=== PATIENT | female | born 1965 | race Two or more races ===

== ENCOUNTER 2020-08-20 05:02 | Inpatient (IN) | payer MEDICAID, OTHER ==
[~2020-08-20] VITALS: Ht 152.4 cm; Wt 72.6 kg
[2020-08-20] MEDS ORDERED: MAGNESIUM/ALUMINUM HYDROXIDE/SIMETHICONE 30ML UDC PO STA (06:33)
[2020-08-20] MEDS ORDERED: KETOROLAC 30MG/ML VIAL IV STA (06:33)
[2020-08-20] MEDS ORDERED: SODIUM CHLORIDE 0.9% 1,000 ML IV ONE (06:45)
[2020-08-20 08:27] LABS: BASOPHILS % 0.3 % (0.0-2.0); EOSINOPHILS % 0.3 % (0.0-5.0); HEMATOCRIT. 42.9 % (36.0-48.0); HEMOGLOBIN. 14.6 g/dL (12.0-16.0); LYMPHOCYTES % 9.2 % (20.0-50.0); MEAN CORPUSCULAR VOLUME 85.4 fL (81.0-99.0); MEAN PLATELET VOLUME 10.2 fl (7.4-10.4); MONOCYTES % 5.5 % (2.0-8.0); NEUTROPHILS % 84.7 % (40.0-76.0); PLATELET 216 x1000/uL (130-400); RED BLOOD CELL COUNT 5.02 mill/uL (4.2-5.4); RED CELL DISTRIBUTION WIDTH 13.7 % (11.6-14.6)
[2020-08-20 08:30] LABS: CLARITY URINE CLEAR (CLEAR); COLOR URINE YELLOW (YELLOW); KETONES URINE 1+ (NEGATIVE); LEUKOCYTE ESTERASE URINE NEGATIVE (NEGATIVE); NITRITE URINE NEGATIVE (NEGATIVE); OCCULT BLOOD URINE NEGATIVE (NEGATIVE); PH URINE 6.5 (4.5-8.0); PROTEIN URINE NEGATIVE (NEGATIVE); SPECIFIC GRAVITY URINE 1.027 (1.005-1.030)
[2020-08-20 08:32] LABS: CHLORIDE 105 mEq/L (98-107)
[2020-08-20 08:35] LABS: INR 1.1; PROTHROMBIN TIME 11.3 sec (9.6-11.0)
[2020-08-20 08:36] LABS: ETHANOL BLOOD < 10 mg/dL
[2020-08-20 08:51] LABS: *AMPHETAMINES SCREEN URINE NEGATIVE (NEGATIVE); *BARBITURATES SCREEN URINE NEGATIVE (NEGATIVE); *BENZODIAZEPINES SCREEN URINE NEGATIVE (NEGATIVE); *COCAINE SCREEN URINE NEGATIVE (NEGATIVE); METHADONE URINE SCREEN NEGATIVE (NEGATIVE); OPIATES URINE SCREEN NEGATIVE (NEGATIVE); PHENCYCLIDINE URINE SCREEN NEGATIVE (NEGATIVE)
[2020-08-20 08:52] LABS: CANNABINOID URINE SCREEN NEGATIVE (NEGATIVE)
[2020-08-20 12:50] VITALS: BP 169/107
[2020-08-20 13:25] VITALS: BP 169/107
[2020-08-20] MEDS ORDERED: ONDANSETRON HCL 4MG/2ML INJ IV PRN ×2 (13:45→14:15)
[2020-08-20] MEDS ORDERED: MORPHINE SULFATE 2 MG/ML CPJ (NOT FOR IM USE) IV PRN (13:45)
[2020-08-20] MEDS ORDERED: GUAIFENESIN 200MG/10ML SUGAR FREE UDC PO PRN (14:15)
[2020-08-20] MEDS ORDERED: DIPHENHYDRAMINE 50MG/ML VIAL IV PRN (14:15)
[2020-08-20] MEDS ORDERED: DEXTROSE 50% WATER 50ML SYRINGE IV PRN (14:15)
[2020-08-20] MEDS: KETOROLAC 30MG/ML VIAL IV PRN (15:56)
[2020-08-20] MEDS: ENOXAPARIN 40MG/0.4ML SYR SUBCUT SCH (15:58)
[2020-08-20] MEDS: AMLODIPINE 10MG TABLET PO SCH (15:58)
[2020-08-20 16:00] VITALS: BP 157/96
[2020-08-20] MEDS: BLOOD SUGAR DIAGNOSTIC STRIP TEST SCH ×2 (17:23→20:59)
[2020-08-20] MEDS: INSULIN LISPRO 100 UNITS/ML SUBCUT SCH ×2 (17:39→20:58)
[2020-08-20] MEDS: SODIUM CHLORIDE 0.9% 1,000 ML IV SCH ×2 (17:40→23:38)
[2020-08-20 20:00] VITALS: BP 146/95
[2020-08-20] MEDS ORDERED: HYDROMORPHONE HCL/PF 2MG/ML CPJ IV PRN (22:15)
[2020-08-21] VITALS: BP 126/76
[2020-08-21 04:00] VITALS: BP 136/91
[2020-08-21] MEDS: KETOROLAC 30MG/ML VIAL IV PRN (05:59)
[2020-08-21] MEDS: BLOOD SUGAR DIAGNOSTIC STRIP TEST SCH ×4 (07:06→21:20)
[2020-08-21 07:23] LABS: CHLORIDE 105 mEq/L (98-107)
[2020-08-21 07:30] LABS: LDL CHOLESTEROL 51 mg/dL (5-100)
[2020-08-21 07:31] LABS: HDL CHOLESTEROL 54 mg/dL (40-59)
[2020-08-21 07:42] LABS: BASOPHILS % 0.7 % (0.0-2.0); EOSINOPHILS % 0.9 % (0.0-5.0); HEMATOCRIT. 37.3 % (36.0-48.0); HEMOGLOBIN. 12.7 g/dL (12.0-16.0); LYMPHOCYTES % 25.1 % (20.0-50.0); MEAN CORPUSCULAR HEMOGLOBIN 29.2 pg (28.0-32.0); MEAN CORPUSCULAR VOLUME 85.5 fL (81.0-99.0); MEAN PLATELET VOLUME 11.3 fl (7.4-10.4); NEUTROPHILS % 63.3 % (40.0-76.0); PLATELET 187 x1000/uL (130-400); RED BLOOD CELL COUNT 4.36 mill/uL (4.2-5.4); RED CELL DISTRIBUTION WIDTH 13.9 % (11.6-14.6)
[2020-08-21] MEDS: INSULIN LISPRO 100 UNITS/ML SUBCUT SCH ×4 (07:50→21:19)
[2020-08-21 08:00] VITALS: BP 131/88
[2020-08-21] MEDS: AMLODIPINE 10MG TABLET PO SCH (09:56)
[2020-08-21] MEDS: SODIUM CHLORIDE 0.9% 1,000 ML IV SCH ×2 (09:57→20:43)
[2020-08-21 12:00] VITALS: BP 134/88
[2020-08-21] MEDS: ENOXAPARIN 40MG/0.4ML SYR SUBCUT SCH (13:19)
[2020-08-21 16:00] VITALS: BP 134/85
[2020-08-21 20:00] VITALS: BP 136/86
[2020-08-22] VITALS: BP 134/83
[2020-08-22] MEDS: KETOROLAC 30MG/ML VIAL IV PRN
[2020-08-22 04:00] VITALS: BP 129/89
[2020-08-22 05:39] LABS: EOSINOPHILS % 4.3 % (0.0-5.0); HEMATOCRIT. 39.6 % (36.0-48.0); HEMOGLOBIN. 13.4 g/dL (12.0-16.0); LYMPHOCYTES % 43.8 % (20.0-50.0); MEAN CORPUSCULAR HEMOGLOBIN 28.8 pg (28.0-32.0); MEAN CORPUSCULAR VOLUME 85.3 fL (81.0-99.0); MONOCYTES % 11.3 % (2.0-8.0); NEUTROPHILS % 39.6 % (40.0-76.0); PLATELET 191 x1000/uL (130-400); RED BLOOD CELL COUNT 4.64 mill/uL (4.2-5.4); RED CELL DISTRIBUTION WIDTH 13.8 % (11.6-14.6)
[2020-08-22 05:50] LABS: CHLORIDE 107 mEq/L (98-107)
[2020-08-22] MEDS: SODIUM CHLORIDE 0.9% 1,000 ML IV SCH (06:17)
[2020-08-22] MEDS: BLOOD SUGAR DIAGNOSTIC STRIP TEST SCH ×2 (07:11→11:56)
[2020-08-22 08:00] VITALS: BP 156/93
[2020-08-22] MEDS: AMLODIPINE 10MG TABLET PO SCH (09:09)
[2020-08-22] MEDS: INSULIN LISPRO 100 UNITS/ML SUBCUT SCH ×2 (09:12→12:04)
[2020-08-22] MEDS ORDERED: POTASSIUM CHLORIDE 20MEQ TABLET SR PO SCH (10:15)
[2020-08-22 13:23] VITALS: BP 146/81
[2020-08-22] MEDS: ENOXAPARIN 40MG/0.4ML SYR SUBCUT SCH (13:51)
== END 2020-08-22 14:30 | disposition home or self-care (01) | DRG 282 ==
LOC: ER 05:02 → 6EST 10:12 → ENRESERV 11:57
PROVIDERS: ADMIT Family Medicine; ATTEND Family Medicine
DX: K85.10 Biliary acute pancreatitis without necrosis or infection (principal); E11.65 Type 2 diabetes mellitus with hyperglycemia; I10 Essential (primary) hypertension; E66.9 Obesity, unspecified; J98.11 Atelectasis; R74.01 Elevation of levels of liver transaminase levels; E87.6 Hypokalemia; E88.09 Other disorders of plasma-protein metabolism, not elsewhere classified; K80.70 Calculus of gallbladder and bile duct without cholecystitis without obstruction; Z88.9 Allergy status to unspecified drugs, medicaments and biological substances; Z95.0 Presence of cardiac pacemaker; Z68.31 Body mass index [BMI] 31.0-31.9, adult; R65.10 Systemic inflammatory response syndrome (SIRS) of non-infectious origin without acute organ dysfunction
CPT/HCPCS: 36415; 71045; 74176; 76700; 80048; 80053; 80061; 80076; 80305; 80320; 81003; 82962; 83036; 85025; 93005; 99285; J1170; J1200; J1650; J1815; J1885; J7030; G0480

== ENCOUNTER 2020-08-28 10:48 | Inpatient (IN) | payer MEDICAID, OTHER ==
[~2020-08-28] VITALS: Ht 160 cm; Wt 70.3 kg
[2020-08-28] MEDS ORDERED: ONDANSETRON HCL 4MG/2ML INJ IV STA (11:06)
[2020-08-28] MEDS ORDERED: KETOROLAC 15MG/ML VIAL IV ONE ×2 (11:15→12:30)
[2020-08-28] MEDS ORDERED: SODIUM CHLORIDE 0.9% 1,000 ML IV ONE (11:15)
[2020-08-28 11:33] LABS: EOSINOPHILS % 0.7 % (0.0-5.0); HEMATOCRIT. 43.6 % (36.0-48.0); HEMOGLOBIN. 14.6 g/dL (12.0-16.0); LYMPHOCYTES % 27.9 % (20.0-50.0); MEAN CORPUSCULAR HEMOGLOBIN 28.6 pg (28.0-32.0); MEAN CORPUSCULAR VOLUME 85.5 fL (81.0-99.0); MEAN PLATELET VOLUME 10.2 fl (7.4-10.4); MONOCYTES % 6.6 % (2.0-8.0); NEUTROPHILS % 63.8 % (40.0-76.0); PLATELET 289 x1000/uL (130-400); RED CELL DISTRIBUTION WIDTH 13.8 % (11.6-14.6)
[2020-08-28 11:43] LABS: CHLORIDE 99 mEq/L (98-107)
[2020-08-28 13:26] LABS: PARTIAL THROMBOPLASTIN TIME 25.6 sec (23.4-31.0); PROTHROMBIN TIME 10.9 sec (9.6-11.0)
[2020-08-28 13:33] LABS: CLARITY URINE CLEAR (CLEAR); COLOR URINE YELLOW (YELLOW); KETONES URINE 1+ (NEGATIVE); LEUKOCYTE ESTERASE URINE NEGATIVE (NEGATIVE); NITRITE URINE NEGATIVE (NEGATIVE); OCCULT BLOOD URINE NEGATIVE (NEGATIVE); PROTEIN URINE NEGATIVE (NEGATIVE); SPECIFIC GRAVITY URINE 1.038 (1.005-1.030); UROBILINOGEN URINE 0.2 E.U./dL (0.2-1.0)
[2020-08-28] MEDS ORDERED: MAGNESIUM/ALUMINUM HYDROXIDE/SIMETHICONE 30ML UDC PO PRN (14:15)
[2020-08-28] MEDS ORDERED: MORPHINE SULFATE 2 MG/ML CPJ (NOT FOR IM USE) IV PRN (14:15)
[2020-08-28] MEDS ORDERED: GUAIFENESIN 200MG/10ML SUGAR FREE UDC PO PRN (14:15)
[2020-08-28] MEDS ORDERED: IPRATROPIUM/ALBUTEROL 0.5-3(2.5)MG/3ML NEB NEB PRN (14:15)
[2020-08-28] MEDS ORDERED: ONDANSETRON HCL 4MG/2ML INJ IV PRN (14:15)
[2020-08-28] MEDS ORDERED: NITROGLYCERIN 0.4MG TABLET SL SL PRN (14:15)
[2020-08-28] MEDS ORDERED: DOCUSATE SODIUM 100MG CAPSULE PO PRN (14:15)
[2020-08-28] MEDS ORDERED: ACETAMINOPHEN 325MG TABLET PO PRN ×2 (14:15)
[2020-08-28] MEDS ORDERED: CLONIDINE 0.1MG TABLET PO PRN (14:15)
[2020-08-28 14:37] LABS: TOTAL IRON BINDING CAPACITY 426 ug/dL (250-450)
[2020-08-28 15:05] LABS: FOLIC ACID (FOLATE) SERUM > 20.00 ng/mL (>5.38); VITAMIN B12 SERUM 1078 pg/mL (211-911)
[2020-08-28 15:44] VITALS: BP 149/95
[2020-08-28] MEDS: ENOXAPARIN 40MG/0.4ML SYR SUBCUT SCH (17:38)
[2020-08-28] MEDS: DILTIAZEM HCL 60MG TABLET PO SCH (17:38)
[2020-08-28] MEDS: KETOROLAC 15MG/ML VIAL IV PRN (18:38)
[2020-08-28] MEDS ORDERED: DEXTROSE 50% WATER 50ML SYRINGE IV PRN (18:45)
[2020-08-28] MEDS ORDERED: ZOLPIDEM TARTRATE 5MG TABLET PO PRN (21:00)
[2020-08-28] MEDS: BLOOD SUGAR DIAGNOSTIC STRIP TEST SCH (21:37)
[2020-08-28] MEDS: HYDROMORPHONE HCL/PF 2MG/ML CPJ IV PRN (21:41)
[2020-08-28] MEDS: SODIUM CHLORIDE 0.9% 1,000 ML IV SCH ×2 (22:25→22:40)
[2020-08-28] MEDS: INSULIN LISPRO 100 UNITS/ML SUBCUT SCH (22:37)
[2020-08-29] VITALS: BP 122/77
[2020-08-29] MEDS: DILTIAZEM HCL 60MG TABLET PO SCH ×5 (00:42→23:55)
[2020-08-29 04:00] VITALS: BP 107/79
[2020-08-29] MEDS: HYDROMORPHONE HCL/PF 2MG/ML CPJ IV PRN ×3 (06:17→20:24)
[2020-08-29 08:00] VITALS: BP 132/80
[2020-08-29] MEDS: BLOOD SUGAR DIAGNOSTIC STRIP TEST SCH ×4 (08:05→20:43)
[2020-08-29] MEDS: SODIUM CHLORIDE 0.9% 1,000 ML IV SCH ×3 (09:12→20:43)
[2020-08-29] MEDS: KETOROLAC 15MG/ML VIAL IV PRN ×2 (09:13→16:40)
[2020-08-29 09:20] LABS: BASOPHILS % 0.3 % (0.0-2.0); HEMATOCRIT. 37.8 % (36.0-48.0); HEMOGLOBIN. 12.7 g/dL (12.0-16.0); LYMPHOCYTES % 10.3 % (20.0-50.0); MEAN CORPUSCULAR HEMOGLOBIN 28.5 pg (28.0-32.0); MEAN CORPUSCULAR VOLUME 84.7 fL (81.0-99.0); MEAN PLATELET VOLUME 10.6 fl (7.4-10.4); MONOCYTES % 6.8 % (2.0-8.0); NEUTROPHILS % 82.6 % (40.0-76.0); PLATELET 266 x1000/uL (130-400); RED BLOOD CELL COUNT 4.46 mill/uL (4.2-5.4); RED CELL DISTRIBUTION WIDTH 13.9 % (11.6-14.6)
[2020-08-29] MEDS: PANTOPRAZOLE SODIUM 40 MG/VIAL IV SCH (09:22)
[2020-08-29] MEDS: INSULIN LISPRO 100 UNITS/ML SUBCUT SCH ×4 (09:30→22:59)
[2020-08-29 09:59] LABS: CHLORIDE 105 mEq/L (98-107)
[2020-08-29 10:08] LABS: PHOSPHORUS 3.8 mg/dL (2.5-4.9)
[2020-08-29 10:15] LABS: AMYLASE 1207 IU/L (25-115)
[2020-08-29 12:00] VITALS: BP 130/75
[2020-08-29 12:38] LABS: *AMPHETAMINES SCREEN URINE NEGATIVE (NEGATIVE); *BARBITURATES SCREEN URINE NEGATIVE (NEGATIVE); *BENZODIAZEPINES SCREEN URINE NEGATIVE (NEGATIVE); CANNABINOID URINE SCREEN NEGATIVE (NEGATIVE); OPIATES URINE SCREEN NEGATIVE (NEGATIVE); PHENCYCLIDINE URINE SCREEN NEGATIVE (NEGATIVE)
[2020-08-29 12:39] LABS: METHADONE URINE SCREEN NEGATIVE (NEGATIVE)
[2020-08-29 12:41] LABS: *COCAINE SCREEN URINE NEGATIVE (NEGATIVE)
[2020-08-29] MEDS: PIPERACILLIN/TAZOBACTAM 3.375 G in DEXT 5% WATER 100 ML IV SCH ×2 (14:14→20:43)
[2020-08-29] MEDS: ENOXAPARIN 40MG/0.4ML SYR SUBCUT SCH (14:15)
[2020-08-29 16:00] VITALS: BP 137/78
[2020-08-29] MEDS: DIPHENHYDRAMINE 50MG/ML VIAL IV PRN (16:30)
[2020-08-29 20:00] VITALS: BP 158/86
[2020-08-30] VITALS: BP 141/77
[2020-08-30 04:00] VITALS: BP 125/78
[2020-08-30] MEDS: PIPERACILLIN/TAZOBACTAM 3.375 G in DEXT 5% WATER 100 ML IV SCH ×4 (04:33→20:38)
[2020-08-30] MEDS: DILTIAZEM HCL 60MG TABLET PO SCH ×3 (06:40→18:33)
[2020-08-30] MEDS: BLOOD SUGAR DIAGNOSTIC STRIP TEST SCH ×4 (07:20→21:00)
[2020-08-30 08:00] VITALS: BP 145/82
[2020-08-30] MEDS: PANTOPRAZOLE SODIUM 40 MG/VIAL IV SCH (10:31)
[2020-08-30] MEDS: INSULIN LISPRO 100 UNITS/ML SUBCUT SCH ×4 (10:39→21:27)
[2020-08-30 11:58] LABS: BASOPHILS % 0.4 % (0.0-2.0); EOSINOPHILS % 0.4 % (0.0-5.0); HEMATOCRIT. 36.4 % (36.0-48.0); HEMOGLOBIN. 12.4 g/dL (12.0-16.0); LYMPHOCYTES % 12.2 % (20.0-50.0); MEAN CORPUSCULAR HEMOGLOBIN 29.1 pg (28.0-32.0); MEAN CORPUSCULAR VOLUME 85.6 fL (81.0-99.0); MONOCYTES % 8.5 % (2.0-8.0); NEUTROPHILS % 78.5 % (40.0-76.0); PLATELET 222 x1000/uL (130-400); RED BLOOD CELL COUNT 4.25 mill/uL (4.2-5.4); RED CELL DISTRIBUTION WIDTH 14.1 % (11.6-14.6)
[2020-08-30 12:00] VITALS: BP 147/87
[2020-08-30 12:56] LABS: CHLORIDE 102 mEq/L (98-107)
[2020-08-30 13:12] LABS: AMYLASE 241 IU/L (25-115)
[2020-08-30] MEDS: SODIUM CHLORIDE 0.9% 1,000 ML IV SCH ×2 (13:52→18:34)
[2020-08-30] MEDS ORDERED: METO-411 MT (17:04)
[2020-08-30] MEDS ORDERED: POTASSIUM CHLORIDE 20MEQ TABLET SR PO NR (17:30)
[2020-08-30 20:00] VITALS: BP 145/85
[2020-08-30] MEDS: KETOROLAC 15MG/ML VIAL IV PRN (21:04)
[2020-08-31] VITALS: BP 150/93
[2020-08-31] MEDS: DILTIAZEM HCL 60MG TABLET PO SCH ×4 (00:25→18:00)
[2020-08-31] MEDS: PIPERACILLIN/TAZOBACTAM 3.375 G in DEXT 5% WATER 100 ML IV SCH ×4 (03:20→20:51)
[2020-08-31] MEDS: SODIUM CHLORIDE 0.9% 1,000 ML IV SCH ×4 (03:21→21:20)
[2020-08-31 04:00] VITALS: BP 152/86
[2020-08-31 07:13] LABS: INR 1.1; PARTIAL THROMBOPLASTIN TIME 29.5 sec (23.4-31.0); PROTHROMBIN TIME 11.5 sec (9.6-11.0)
[2020-08-31] MEDS: BLOOD SUGAR DIAGNOSTIC STRIP TEST SCH ×4 (07:15→21:22)
[2020-08-31 07:33] LABS: BASOPHILS % 0.5 % (0.0-2.0); EOSINOPHILS % 0.8 % (0.0-5.0); HEMATOCRIT. 34.2 % (36.0-48.0); HEMOGLOBIN. 11.7 g/dL (12.0-16.0); LYMPHOCYTES % 21.4 % (20.0-50.0); MEAN CORPUSCULAR HEMOGLOBIN 29.3 pg (28.0-32.0); MEAN CORPUSCULAR VOLUME 85.3 fL (81.0-99.0); MEAN PLATELET VOLUME 11.5 fl (7.4-10.4); MONOCYTES % 6.4 % (2.0-8.0); NEUTROPHILS % 70.9 % (40.0-76.0); PLATELET 215 x1000/uL (130-400); RED BLOOD CELL COUNT 4.01 mill/uL (4.2-5.4)
[2020-08-31] MEDS: PANTOPRAZOLE SODIUM 40 MG/VIAL IV SCH (08:20)
[2020-08-31] MEDS: HYDROMORPHONE HCL/PF 2MG/ML CPJ IV PRN ×2 (08:23→20:52)
[2020-08-31] MEDS: INSULIN LISPRO 100 UNITS/ML SUBCUT SCH ×4 (08:33→21:35)
[2020-08-31 08:35] LABS: CHLORIDE 103 mEq/L (98-107)
[2020-08-31 08:45] LABS: AMYLASE 111 IU/L (25-115)
[2020-08-31 10:13] VITALS: BP 134/89
[2020-08-31] MEDS ORDERED: KCL 20MEQ/100ML PREMIX 100 ML IV NR (11:00)
[2020-08-31 12:00] VITALS: BP 126/76
[2020-08-31] MEDS ORDERED: SIMETHICONE 40 MG/0.6 ML 30ML ONE (12:30)
[2020-08-31] MEDS ORDERED: IOHEXOL-300 100 ML BOTTLE ONE (12:30)
[2020-08-31 16:00] VITALS: BP 128/78
[2020-08-31] MEDS ORDERED: FENTANYL CITRATE/PF 50MCG/ML 2ML VIAL ONE (16:16)
[2020-08-31] MEDS ORDERED: ROCURONIUM BROMIDE 10MG/ML VIAL 5ML IV ONE (16:16)
[2020-08-31] MEDS ORDERED: NEOSTIGMINE METHYLSULFATE 1MG/ML 10 ML VIAL ONE (16:16)
[2020-08-31] MEDS ORDERED: PROPOFOL 200MG/20ML VIAL IV ONE (16:16)
[2020-08-31] MEDS ORDERED: MIDAZOLAM HCL 2 MG/2 ML VIAL ONE (16:16)
[2020-08-31] MEDS ORDERED: GLYCOPYRROLATE 0.2 MG/ML 2ML VIAL ONE ×2 (16:17→17:08)
[2020-08-31] MEDS ORDERED: DEXAMETHASONE 4MG/ML 1ML VIAL ONE (16:44)
[2020-08-31] MEDS ORDERED: ONDANSETRON HCL 4MG/2ML INJ ONE (16:44)
[2020-08-31] MEDS ORDERED: LABETALOL 5MG/ML SYR 20 MG/4 ML SYRINGE IV PRN (17:00)
[2020-08-31] MEDS ORDERED: HYDROMORPHONE HCL/PF 2MG/ML CPJ IV PRN (17:00)
[2020-08-31] MEDS ORDERED: MEPERIDINE HCL/PF 25MG/ML CPJ IV PRN (17:00)
[2020-08-31] MEDS ORDERED: ONDANSETRON HCL 4MG/2ML INJ IV PRN (17:00)
[2020-08-31 20:00] VITALS: BP 133/89
[2020-08-31] MEDS: DIPHENHYDRAMINE 50MG/ML VIAL IV PRN (23:39)
[2020-09-01] VITALS: BP 106/53
[2020-09-01] MEDS: PIPERACILLIN/TAZOBACTAM 3.375 G in DEXT 5% WATER 100 ML IV SCH ×4 (02:09→22:48)
[2020-09-01 04:00] VITALS: BP 130/79
[2020-09-01] MEDS: SODIUM CHLORIDE 0.9% 1,000 ML IV SCH ×4 (06:06→22:58)
[2020-09-01] MEDS: DILTIAZEM HCL 60MG TABLET PO SCH ×4 (06:06→22:53)
[2020-09-01] MEDS: BLOOD SUGAR DIAGNOSTIC STRIP TEST SCH ×4 (07:08→21:00)
[2020-09-01 08:00] VITALS: BP 117/74
[2020-09-01] MEDS: PANTOPRAZOLE SODIUM 40 MG/VIAL IV SCH (08:37)
[2020-09-01] MEDS: HYDROMORPHONE HCL/PF 2MG/ML CPJ IV PRN (08:39)
[2020-09-01] MEDS: INSULIN LISPRO 100 UNITS/ML SUBCUT SCH ×4 (08:52→22:51)
[2020-09-01 12:00] VITALS: BP 22/69
[2020-09-01 16:00] VITALS: BP 114/74
[2020-09-01 21:07] VITALS: BP 112/65
[2020-09-02] VITALS: BP 125/69
[2020-09-02] MEDS: PIPERACILLIN/TAZOBACTAM 3.375 G in DEXT 5% WATER 100 ML IV SCH ×2 (01:29→10:33)
[2020-09-02 04:48] VITALS: BP 127/61
[2020-09-02] MEDS: BLOOD SUGAR DIAGNOSTIC STRIP TEST SCH ×2 (06:13→13:02)
[2020-09-02] MEDS: INSULIN LISPRO 100 UNITS/ML SUBCUT SCH ×2 (06:17→13:19)
[2020-09-02] MEDS: DILTIAZEM HCL 60MG TABLET PO SCH ×2 (06:23→13:09)
[2020-09-02] MEDS: SODIUM CHLORIDE 0.9% 1,000 ML IV SCH (06:24)
[2020-09-02 08:00] VITALS: BP 132/71
[2020-09-02] MEDS ORDERED: FAMOTIDINE 20MG/2ML VIAL IV SCH (09:00)
[2020-09-02 12:00] VITALS: BP 132/70
== END 2020-09-02 15:15 | disposition home or self-care (01) ==
LOC: ER 10:55 → 6EST 13:36 → ENRESERV 14:02
PROVIDERS: ADMIT Internal Medicine; ATTEND Internal Medicine
PROC: 0F798ZZ Dilation of Common Bile Duct, Via Natural or Artificial Opening Endoscopic (ICD-10-PCS; principal; 2020-08-31)
PROC: BF131ZZ Fluoroscopy of Gallbladder and Bile Ducts using Low Osmolar Contrast (ICD-10-PCS; 2020-08-31)
DX: K80.62 Calculus of gallbladder and bile duct with acute cholecystitis without obstruction (principal); K85.10 Biliary acute pancreatitis without necrosis or infection; E11.65 Type 2 diabetes mellitus with hyperglycemia; E87.1 Hypo-osmolality and hyponatremia; I10 Essential (primary) hypertension; R74.01 Elevation of levels of liver transaminase levels; Z20.822 Contact with and (suspected) exposure to COVID-19; K82.8 Other specified diseases of gallbladder; Z95.0 Presence of cardiac pacemaker; Z88.5 Allergy status to narcotic agent; Z88.8 Allergy status to other drugs, medicaments and biological substances; Z79.899 Other long term (current) drug therapy
CPT/HCPCS: 36415; 71045; 74176; 74328; 76705; 80053; 80305; 81003; 82150; 82248; 82607; 82746; 82962; 83036; 83540; 83550; 83735; 84100; 85025; 87426; 93005; 93970; 99285; C1726; C1769; C9113; J1100; J1170; J1200; J1650; J1815; J1885; J2250; J2405; J2543; J2704; J2710; J3010; J3480; J3490; J7030; J7060; Q9967